=== PATIENT | female | born 1945 | race Caucasian/White ===

== ENCOUNTER 2017-01-30 07:58 | Emergency (ER) | payer OTHER ==
[~2017-01-30] VITALS: Ht 157.5 cm; Wt 58.2 kg
[~2017-01-30 07:58] MED LIST: CALTRATE 600 +1 EAC1 PO; MULTIVITAMIN1 EAC2 PO; SIMVASTATIN10 MG PO
[2017-01-30 08:23] LABS: HEMATOCRIT 37.6 % (36.0-46.0); MCHC 32.4 G/DL (30.0-36.0); MCV 92.6 FL (83-99); MEAN PLAT.VOLUME 10.4 uM^3 (9.5-12.4); PLATELET COUNT 263 K/uL (156-360); RBC DIS.WIDTH-CV 12.9 % (11.8-14.6); RBC DIS.WIDTH-SD 44.1 % (39-53); RED BLOOD COUNT 4.06 M/uL (3.80-5.20); WHITE BLOOD COUNT 10.2 K/uL (4.1-10.2)
[2017-01-30 08:31] LABS: CHLORIDE 100 mEq/L (99-109); POTASSIUM 3.9 mEq/L (3.7-5.4); SODIUM 134 mEq/L (136-147)
[2017-01-30 08:33] LABS: GLUCOSE 120 mg/dL (70-99)
[2017-01-30 08:35] LABS: ANION GAP 8 MEQ/L (2-14)
[2017-01-30 08:37] LABS: GFR ESTIMATE (CALCULATED) > 59 mL/min/
[2017-01-30 08:38] LABS: UREA NITROGEN (BUN) 7 mg/dL (9-23)
[2017-01-30 08:44] LABS: TROP-I INTERPRETATION NEGATIVE; TROPONIN-I < 0.01 ng/mL (0.0-0.30)
[2017-01-30 09:27] LABS: D-DIMER ELISA 0.68 mg/L FEU (< 0.57)
[2017-01-30] MEDS ORDERED: LEVAQUIN750 MG PO (11:14)
[2017-01-30 11:37] VITALS: BP 119/79
== END 2017-01-30 11:39 | disposition home or self-care (01) ==
LOC: EME 07:58
DX: J18.9 Pneumonia, unspecified organism (principal); E78.5 Hyperlipidemia, unspecified; Z87.891 Personal history of nicotine dependence
CPT/HCPCS: 71020; 71275; 80048; 84484; 85027; 85379; 93005; 99281; 99285; J7030